=== PATIENT | male | born 1945 | race Caucasian/White ===

== ENCOUNTER → 2020-08-03 | Outpatient (CLI) | payer MEDICARE | END | disposition home or self-care (01) | LOC: CFH 09:41 | PROVIDERS: ATTEND Internal Medicine Cardiovascular Disease | DX: Z01.812 Encounter for preprocedural laboratory examination (principal); Z20.828 Contact with and (suspected) exposure to other viral communicable diseases; I48.91 Unspecified atrial fibrillation; J84.10 Pulmonary fibrosis, unspecified; M47.814 Spondylosis without myelopathy or radiculopathy, thoracic region | CPT/HCPCS: 71046; 75572; 87635 ==

== ENCOUNTER 2020-08-08 05:52 | Observation (INO) | payer MEDICARE ==
[~2020-08-08] VITALS: Ht 185.4 cm; Wt 82.7 kg
[2020-08-08] MEDS ORDERED: Magnesium PO (06:23)
[2020-08-08] MEDS ORDERED: CHOL10003 PO (06:23)
[2020-08-08] MEDS ORDERED: B12 PO (06:23)
[2020-08-08] MEDS ORDERED: MULT-658 PO (06:23)
[2020-08-08] MEDS ORDERED: RESV250C2 PO (06:23)
[2020-08-08] MEDS ORDERED: CURCUMIN PO (06:23)
[2020-08-08] MEDS ORDERED: Potassium PO (06:23)
[2020-08-08] MEDS ORDERED: GARL10002 PO (06:23)
[2020-08-08] MEDS ORDERED: TUMERIC PO (06:23)
[2020-08-08] MEDS ORDERED: LUTE1CAP5 PO (06:23)
[2020-08-08] MEDS ORDERED: FINA5TAB4 PO (06:23)
[2020-08-08] MEDS ORDERED: WARF7.5T46 PO (06:23)
[2020-08-08] MEDS ORDERED: METO50TA82 PO (06:23)
[2020-08-08 06:26] VITALS: BP 138/77
[2020-08-08] MEDS ORDERED: SODIUM CHLORIDE 0.9% 1,000 ML IV SCH ×2 (06:30)
[2020-08-08] MEDS ORDERED: LIDOCAINE 2%, 20ML ONE (07:13)
[2020-08-08] MEDS ORDERED: ONDANSETRON 2MG/ML, 2ML ONE (08:11)
[2020-08-08] MEDS ORDERED: DEXAMETHASONE 4 MG/ML, 1ML ONE (08:11)
[2020-08-08] MEDS ORDERED: SUGAMMADEX 200 MG/2 ML IVPush ONE (08:11)
[2020-08-08] MEDS ORDERED: PROPOFOL 10 MG/ML, 20ML ONE (08:13)
[2020-08-08] MEDS ORDERED: ROCURONIUM 10MG/ML,5ML ONE (08:13)
[2020-08-08] MEDS ORDERED: FENTANYL PF 250 MCG/5ML ONE (08:13)
[2020-08-08] MEDS ORDERED: MIDAZOLAM 1 MG/ML, 2ML ONE (08:13)
[2020-08-08] MEDS ORDERED: EPHEDRINE 50 MG/ML, 1ML ONE (09:48)
[2020-08-08] MEDS ORDERED: FENTANYL PF 100 MCG/2ML ONE ×2 (09:59→11:19)
[2020-08-08] MEDS ORDERED: EPHEDRINE 50 MG/ML, 1ML IVPush PRN (12:00)
[2020-08-08] MEDS ORDERED: DIPHENHYDRAMINE 50 MG/ML, 1ML IVPush PRN (12:00)
[2020-08-08] MEDS ORDERED: DIAZEPAM 5 MG/ML, 2ML IVPush PRN (12:00)
[2020-08-08] MEDS ORDERED: HYDROmorphone 1 MG/ML, 1ML INJ IVPush PRN (12:00)
[2020-08-08] MEDS ORDERED: MIDAZOLAM 1 MG/ML, 2ML IV PRN (12:00)
[2020-08-08] MEDS ORDERED: FENTANYL PF 100 MCG/2ML IV PRN (12:00)
[2020-08-08] MEDS ORDERED: PROMETHAZINE 25 MG/ML, 1ML IVPush PRN (12:00)
[2020-08-08] MEDS ORDERED: hydrALAzine 20 MG/ML, 1ML IV PRN (12:00)
[2020-08-08] MEDS ORDERED: ACETAMINOPHEN 325 MG TABLET PO PRN ×2 (12:00)
[2020-08-08] MEDS ORDERED: MEPERIDINE/PF 25MG/0.5ML IVPush PRN (12:00)
[2020-08-08] MEDS ORDERED: PROMETHAZINE 12.5 MG SUPP PR PRN (12:00)
[2020-08-08] MEDS ORDERED: LABETALOL 5MG/ML, 20ML IV PRN (12:00)
[2020-08-08] MEDS ORDERED: ONDANSETRON 2MG/ML, 2ML IVPush PRN (12:00)
[2020-08-08] MEDS ORDERED: OXYcodone 5 MG/5 ML ORAL.SOL UDC PO PRN (12:00)
[2020-08-08] MEDS ORDERED: ALBUTEROL SULFATE 2.5 MG/3 ML NPPB PRN (12:00)
[2020-08-08 14:12] VITALS: BP 111/73
[2020-08-08 15:12] LABS: INTERNATIONAL NORMALIZED RATIO 2.09 (0.93-1.1)
[2020-08-08] MEDS ORDERED: WARFARIN 7.5 MG TABLET PO-COUM ONE (18:00)
[2020-08-08 19:56] VITALS: BP 125/74
[2020-08-08] MEDS: COLCHICINE 0.6 MG CAPSULE PO SCH (20:08)
[2020-08-08] MEDS: METOPROLOL TARTRATE 50 MG TAB PO SCH (20:08)
[2020-08-09 01:50] VITALS: BP 118/72
[2020-08-09 05:32] LABS: INTERNATIONAL NORMALIZED RATIO 1.85 (0.93-1.1); PROTHROMBIN TIME 19.5 Seconds (9.6-11.5)
[2020-08-09 07:54] VITALS: BP_SYST 115; BP_SYST 131; BP_DIAS 69; BP_DIAS 78
[2020-08-09] MEDS ORDERED: ACET325T26 PO (08:12)
[2020-08-09] MEDS ORDERED: COLC0.6C3 PO (08:12)
[2020-08-09] MEDS: METOPROLOL TARTRATE 50 MG TAB PO SCH (08:14)
[2020-08-09] MEDS: COLCHICINE 0.6 MG CAPSULE PO SCH (08:15)
[2020-08-09] MEDS ORDERED: WARFARIN 7.5 MG TABLET PO-COUM SCH (09:00)
[2020-08-09] MEDS ORDERED: METOPROLOL TARTRATE 50 MG TAB PO SCH (09:00)
[2020-08-09] MEDS ORDERED: MULTIVITAMIN 1 TABLET PO SCH (09:00)
[2020-08-10] MEDS ORDERED: CHOLECALCIFEROL 1,000 UNIT TABLET PO SCH (09:00)
[2020-08-10] MEDS ORDERED: FINASTERIDE 5 MG TABLET PO SCH (09:00)
== END 2020-08-09 09:45 | disposition home or self-care (01) ==
LOC: CACL 05:52 → ORIP 11:40 → 5SO 13:36 → DCLOUNGE 08-09 09:41
PROVIDERS: ADMIT Internal Medicine Cardiovascular Disease; ATTEND Internal Medicine Cardiovascular Disease
DX: I48.91 Unspecified atrial fibrillation (principal); I48.92 Unspecified atrial flutter; Z79.899 Other long term (current) drug therapy
CPT/HCPCS: 36415; 85347; 85610; 93306; 93312; 93321; 93325; 93613; 93655; 93656; 93662; C1730; C1732; C1759; C1766; C1893; C1894; G0378; J1100; J2250; J2405; J2704; J3010; J3490